=== PATIENT | female | born 1985 | race Caucasian/White ===

== ENCOUNTER 2022-01-30 14:30 | Outpatient (RCR) | payer BC, SELFPAY | END 2022-04-04 13:48 | disposition home or self-care (01) | PROVIDERS: PCP Physician Assistant Medical; Visit Provider Physician Assistant Medical | DX: M54.9 Dorsalgia, unspecified (principal); Z51.89 Encounter for other specified aftercare | CPT/HCPCS: 97110; 97162 ==